=== PATIENT | male | born 1935 | race African-American/Black ===

== ENCOUNTER 2018-06-17 20:11 | Inpatient (IN) | payer MEDICAID, MEDICARE ==
--- NOTE | 2018-06-17 21:18 | ED Physician Chart ---
ED Chief Complaint/HPI - Patient Information Date Seen:: 06/17/18 Time Seen:: 21:18 Chief Complaint:: Increased agitation History of Present Illness:: 83 yo male was brought by BLS from [facility] to ER for evaluation of increased agitation and aggressive behavior. Per report, pt refused care at [facility]. On arrival at ER, pt was stable, calm and cooperative. Allergies:: Allergies Allergy/AdvReac Type Severity Reaction Status Date / Time No Known Allergies Allergy Verified 09/23/15 17:49 ED Review of Systems - Review of Systems General/Constitutional: No fever, No chills Skin: No rash Head: No headache Eyes: No pain ENT: No nasal drainage Neck: No neck pain Cardio Vascular: No chest pain Pulmonary: No SOB GI: No nausea, No vomiting Musculoskeletal: No bone or joint pain Psychiatric: Prior psych history Neurological: No focal symptoms ED Past Medical History - Past Medical History Past Medical History: HTN, Asthma/COPD, Dementia, Other (WEAKNESS, ALLERGIC RHINITIS, ANEMIA) Social History: Non Smoker, No Alcohol, No Drug Use Psychiatricy History: Bipolar, Other (Insomnia, anxiety, schizoaffective disorder) Family Medical History - Family Member Mother History Unknown: Yes Ethnicity: Non- Living Status: Hx Family Cancer: No Hx Family Coronary Artery Disease: No Hx Family Congestive Heart Failure: No Hx Family Hypertension: No Hx Family Stroke: No Hx Family Diabetes: No Hx Family Seizures: No Hx Family Dementia: No Hx Family AIDS: No Hx Family HIV: No Hx Family COPD: No Hx Family Hepatitis: No Hx Family Psychiatric Problems: No Hx Family Tuberculosis: No ED Physical Exam - Physical Examination General/Constitutional: Awake, Alert Head: Atraumatic Eyes: PERRL, EOMI Skin: No ecchymosis ENMT: Nasal exam nl Neck: No nuchal rigidity Respiratory: No Wheeze/Rhonchi/Rales Cardio Vascular: RRR, No murmur, gallop, rubs, NL S1 S2 GI: No tenderness/rebounding/guarding Extremities: normal strength in all extremities Other Neuro/Psych comments:: A&O x 1 ED Labs/Radiology/EKG Results - Lab Results Results: Laboratory Last Values WBC 7.0 Th/cmm (4.8-10.8) 06/17/18 21:35 RBC 4.28 Mil/cmm (3.80-5.80) 06/17/18 21:35 Hgb 12.6 gm/dL (12-16) 06/17/18 21:35 Hct 38.6 % (41.0-60) L 06/17/18 21:35 MCV 90.1 fl (80-99) 06/17/18 21:35 MCH 29.4 pg (27.0-31.0) 06/17/18 21:35 MCHC Differential 32.7 pg (28.0-36.0) 06/17/18 21:35 RDW 12.2 % (11.5-20.0) 06/17/18 21:35 Plt Count 183 Th/cmm (150-400) 06/17/18 21:35 MPV 7.7 fl 06/17/18 21:35 Neutrophils % 42.0 % (40.0-80.0) 06/17/18 21:35 Lymphocytes % 42.6 % (20.0-50.0) 06/17/18 21:35 Monocytes % 11.9 % (2.0-10.0) H 06/17/18 21:35 Eosinophils % 2.9 % (0.0-5.0) 06/17/18 21:35 Basophils % 0.6 % (0.0-2.0) 06/17/18 21:35 Sodium 137 mEq/L (136-145) 06/17/18 21:35 Potassium 4.2 mEq/L (3.5-5.1) 06/17/18 21:35 Chloride 101 mEq/L (98-107) 06/17/18 21:35 Carbon Dioxide 28.9 mEq/L (21.0-31.0) 06/17/18 21:35 Anion Gap 11.3 (7.0-16.0) 06/17/18 21:35 BUN 17 mg/dL (7-25) 06/17/18 21:35 Creatinine 1.0 mg/dL (0.7-1.3) 06/17/18 21:35 Est GFR ( Amer) TNP 06/17/18 21:35 Est GFR (Non-Af Amer) TNP 06/17/18 21:35 BUN/Creatinine Ratio 17.0 06/17/18 21:35 Glucose 121 mg/dL (70-105) H 06/17/18 21:35 Calcium 9.2 mg/dL (8.6-10.3) 06/17/18 21:35 Total Bilirubin 0.3 mg/dL (0.3-1.0) 06/17/18 21:35 AST 12 U/L (13-39) L 06/17/18 21:35 ALT 7 U/L (7-52) 06/17/18 21:35 Alkaline Phosphatase 51 U/L (34-104) 06/17/18 21:35 Troponin I < 0.01 ng/mL (0.01-0.05) L 06/17/18 21:35 B-Natriuretic Peptide 69.6 pg/mL (5.0-100.0) 06/17/18 21:35 Total Protein 6.5 gm/dL (6.0-8.3) 06/17/18 21:35 Albumin 3.8 gm/dL (4.2-5.5) L 06/17/18 21:35 Globulin 2.7 gm/dL 06/17/18 21:35 Albumin/Globulin Ratio 1.4 (1.0-1.8) 06/17/18 21:35 Triglycerides 98 mg/dL (<150) 06/17/18 21:35 Cholesterol 142 mg/dL (<200) 06/17/18 21:35 LDL Cholesterol Direct 96 mg/dL (75-193) 06/17/18 21:35 HDL Cholesterol 35 mg/dL (23-92) 06/17/18 21:35 TSH 3.20 uIU/ml (0.34-5.60) 06/17/18 21:35 Urine Source RANDOM 06/17/18 22:00 Urine Color YELLOW 06/17/18 22:00 Urine Clarity CLEAR (CLEAR) 06/17/18 22:00 Urine pH 7.0 (4.6 - 8.0) 06/17/18 22:00 Ur Specific [place] <= 1.005 (1.005-1.030) 06/17/18 22:00 Urine Protein NEGATIVE mg/dL (NEGATIVE) 06/17/18 22:00 Urine Glucose (UA) NEGATIVE mg/dL (NEGATIVE) 06/17/18 22:00 Urine Ketones NEGATIVE mg/dL (NEGATIVE) 06/17/18 22:00 Urine Blood NEGATIVE (NEGATIVE) 04/23/19 22:00 Urine Nitrate NEGATIVE (NEGATIVE) 06/17/18 22:00 Urine Bilirubin NEGATIVE (NEGATIVE) 06/17/18 22:00 Urine Urobilinogen 0.2 E.U./dL (0.2 - 1.0) 06/17/18 22:00 Ur Leukocyte Esterase NEGATIVE (NEGATIVE) 06/17/18 22:00 - Radiology Results Results: CXR: COPD, no focal consolidation ED Assessment - Assessment General Assessment: Hypertension COPD Anemia Weakness Schizoaffective disorder Bipolar Insomnia Anxiety Psychosis Assessment/Comments:: CBC, CMP, BNP, Trop, UA CXR, EKG Admit to geropsych unit for further evaluation and management ED Septic Shock - . Is Septic Shock (SBP<90, OR Lactate>4 mmol\L) present?: No ED Reassessment (Disposition) - Reassessment Reassessment Condition:: Unchanged - Patient Disposition Discharge/Transfer:: [facility] w/in this hosp Admitting Medical Physician:: Shi Andre Admitting Psych Physician:: Delano Suarez
[2018-06-17 21:54] LABS: % BASOPHILS 0.6 % (0.0-2.0); % EOSINOPHILS 2.9 % (0.0-5.0); % LYMPHOCYTES 42.6 % (20.0-50.0); % MONOCYTES 11.9 % (2.0-10.0); EOSINOPHILE ABSOLUTE 0.2 Th/cmm (0.1-0.4); HEMATOCRIT 38.6 % (41.0-60); HEMOGLOBIN 12.6 gm/dL (12-16); LYMPHOCYTE ABSOLUTE 3.1 Th/cmm (1.5-3.0); MEAN CELL VOLUME 90.1 fl (80-99); MEAN CORPUSCULAR HEMOGLOBIN 29.4 pg (27.0-31.0); MEAN CORPUSCULAR HGB CONC 32.7 pg (28.0-36.0); MEAN PLATELET VOLUME 7.7 fl; MONOCYTE ABSOLUTE 0.8 Th/cmm (0.3-1.0); NEUTROPHILE ABSOLUTE 2.9 Th/cmm (1.8-8.0); PLATELET COUNT 183 Th/cmm (150-400); RED BLOOD COUNT 4.28 Mil/cmm (3.80-5.80); RED CELL DISTRIBUTION WIDTH 12.2 % (11.5-20.0)
[2018-06-17 22:09] LABS: ALB/GLOB RATIO 1.4 (1.0-1.8); ALBUMIN 3.8 gm/dL (4.2-5.5); ALKALINE PHOSPHATASE 51 U/L (34-104); ANION GAP 11.3 (7.0-16.0); BILIRUBIN,TOTAL 0.3 mg/dL (0.3-1.0); BUN - UREA NITROGEN 17 mg/dL (7-25); CALCIUM SERUM 9.2 mg/dL (8.6-10.3); CARBON DIOXIDE 28.9 mEq/L (21.0-31.0); CHLORIDE 101 mEq/L (98-107); GLUCOSE 121 mg/dL (70-105); POTASSIUM SERUM 4.2 mEq/L (3.5-5.1); SGOT 12 U/L (13-39); SGPT/ALT 7 U/L (7-52); SODIUM SERUM 137 mEq/L (136-145); TOTAL PROTEIN,SERUM 6.5 gm/dL (6.0-8.3)
[2018-06-17 22:16] LABS: URINE SOURCE RANDOM
[2018-06-17 22:23] LABS: URINE BILIRUBIN NEGATIVE (NEGATIVE); URINE BLOOD NEGATIVE (NEGATIVE); URINE GLUCOSE (UA) NEGATIVE (NEGATIVE); URINE KETONE NEGATIVE (NEGATIVE); URINE LEUKOCYTE ESTERASE NEGATIVE (NEGATIVE); URINE NITRATE NEGATIVE (NEGATIVE); URINE PROTEIN NEGATIVE (NEGATIVE); URINE UROBILINOGEN 0.2 E.U./dL (0.2 - 1.0)
[2018-06-17 22:28] LABS: URINE CLARITY CLEAR (CLEAR); URINE COLOR YELLOW; URINE MICROSCOPIC INDICATED? NO
[2018-06-18 02:13] LABS: CHOLESTEROL 142 mg/dL (<200); HDL -HIGH DENSITY LIPOPROTEIN 35 mg/dL (23-92); TRIGLYCERIDES 98 mg/dL (<150)
[2018-06-18] MEDS: Ferrous Sulfate 325 MG TAB PO SCH ×3 (08:48→16:30)
--- NOTE | 2018-06-18 09:14 | Diagnostic Imaging Report ---
CHEST X-RAY: AP view INDICATION: Shortness of breath COMPARISON: None FINDINGS: COPD lung changes are seen with chronic changes and biapical pleural thickening. No focal consolidation or effusions. Heart size normal. Osseous structures are intact. IMPRESSION COPD lung changes with chronic changes greatest along the upper lung zones and biapical pleural thickening. No focal consolidation identified.
--- NOTE | 2018-06-18 17:29 | History & Physical ---
ADMIT DATE: 06/18/2018 HISTORY OF PRESENT ILLNESS: The patient was admitted because of increasing agitation, came to the Emergency Room at [facility] from [place], and was admitted. PAST MEDICAL HISTORY: Includes hypertension, asthma, dementia, allergic rhinitis, and anemia. REVIEW OF SYSTEMS: Negative. FAMILY HISTORY: Unremarkable. PHYSICAL EXAMINATION: GENERAL: Alert, oriented, elderly, not in acute distress. VITAL SIGNS: Noted. HEAD: Normal. ENT: Normal. NECK: Supple, nontender. LUNGS: Clear. CARDIOVASCULAR SYSTEM: S1, S2 heard. LABORATORY DATA: Noted within normal limits. EKG showed COPD, no consolidation. DIAGNOSES: Severe agitation, history of hypertension, chronic obstructive pulmonary disease, anemia, weakness, schizoaffective disorder, bipolar disorder, anxiety, psychosis was made. PLAN: The patient will be admitted and I will follow medically and Dr. Suarez is going to follow. [facility]# [id number]
--- NOTE | 2018-06-18 23:29 | Psychiatric Evaluation ---
DATE OF SERVICE: 06/18/2018 HISTORY OF PRESENT ILLNESS: An 83-year-old male brought in from [place] because of increased agitation, aggressive behaviors, refusal of care. The patient is AO to name, place, city, not situation. He knows the year, the month. He really has no idea why he is here, at times staring blankly, thought blocking, not answering some questions. Denying depression "everything is fine" appearing history of dementia. PAST PSYCHIATRIC HISTORY: Dementia, likely schizophrenia versus schizoaffective. FAMILY HISTORY: Noncontributory. SOCIAL HISTORY: Born in [place]. He states that he is , but does not know where his kids are or his is. He stares blankly, not answering any further questions, unclear SI or HI. He seems to be psychotic. Poor insight, poor judgment. MENTAL STATUS EXAMINATION: Stated age, disheveled, unkempt, fair eye contact, awake, alert, disorganized. No overt SI or HI as noted. PROVISIONAL DIAGNOSES: Schizophrenia, concerns for dementia. Under medical please see full H and P. ESTIMATED LENGTH OF STAY: 5 to 6 days. ASSESSMENT: The patient is unruly, agitated, worsening symptoms, psychotic symptoms, not showering, refusing care, hoarding, male, verbally aggressive, poor orientation and thought blocking. PLAN: We will adjust medications. The patient is not safe for a lower level of care. We will continue to monitor on an inpatient basis. TREATMENT PLAN: Includes group as well as milieu therapy. CONDITIONS FOR DISCHARGE: Improved mood, improved affect, better control of any psychotic symptoms. [facility]# [id number]
[2018-06-19] MEDS: Ferrous Sulfate 325 MG TAB PO SCH ×3 (09:00→17:23)
--- NOTE | 2018-06-19 12:07 | Internal Medicine Prog Note ---
Internal Medicine Subjective - Subjective Service Date: 06/19/18 Patient seen and examined:: with staff Patient is:: awake Per staff patient has:: tolerating meds Internal Medicine Objective - Results Result Diagrams: 06/17/18 21:35 06/17/18 21:35 Recent Labs: Laboratory Last Values WBC 7.0 Th/cmm (4.8-10.8) 06/17/18 21:35 RBC 4.28 Mil/cmm (3.80-5.80) 06/17/18 21:35 Hgb 12.6 gm/dL (12-16) 06/17/18 21:35 Hct 38.6 % (41.0-60) L 06/17/18 21:35 MCV 90.1 fl (80-99) 06/17/18 21:35 MCH 29.4 pg (27.0-31.0) 06/17/18 21:35 MCHC Differential 32.7 pg (28.0-36.0) 06/17/18 21:35 RDW 12.2 % (11.5-20.0) 06/17/18 21:35 Plt Count 183 Th/cmm (150-400) 06/17/18 21:35 MPV 7.7 fl 06/17/18 21:35 Neutrophils % 42.0 % (40.0-80.0) 06/17/18 21:35 Lymphocytes % 42.6 % (20.0-50.0) 06/17/18 21:35 Monocytes % 11.9 % (2.0-10.0) H 06/17/18 21:35 Eosinophils % 2.9 % (0.0-5.0) 06/17/18 21:35 Basophils % 0.6 % (0.0-2.0) 06/17/18 21:35 Sodium 137 mEq/L (136-145) 06/17/18 21:35 Potassium 4.2 mEq/L (3.5-5.1) 06/17/18 21:35 Chloride 101 mEq/L (98-107) 06/17/18 21:35 Carbon Dioxide 28.9 mEq/L (21.0-31.0) 06/17/18 21:35 Anion Gap 11.3 (7.0-16.0) 06/17/18 21:35 BUN 17 mg/dL (7-25) 06/17/18 21:35 Creatinine 1.0 mg/dL (0.7-1.3) 06/17/18 21:35 Est GFR ( Amer) TNP 06/17/18 21:35 Est GFR (Non-Af Amer) TNP 06/17/18 21:35 BUN/Creatinine Ratio 17.0 06/17/18 21:35 Glucose 121 mg/dL (70-105) H 06/17/18 21:35 Calcium 9.2 mg/dL (8.6-10.3) 06/17/18 21:35 Total Bilirubin 0.3 mg/dL (0.3-1.0) 06/17/18 21:35 AST 12 U/L (13-39) L 06/17/18 21:35 ALT 7 U/L (7-52) 06/17/18 21:35 Alkaline Phosphatase 51 U/L (34-104) 06/17/18 21:35 Troponin I < 0.01 ng/mL (0.01-0.05) L 06/17/18 21:35 B-Natriuretic Peptide 69.6 pg/mL (5.0-100.0) 06/17/18 21:35 Total Protein 6.5 gm/dL (6.0-8.3) 06/17/18 21:35 Albumin 3.8 gm/dL (4.2-5.5) L 06/17/18 21:35 Globulin 2.7 gm/dL 06/17/18 21:35 Albumin/Globulin Ratio 1.4 (1.0-1.8) 06/17/18 21:35 Triglycerides 98 mg/dL (<150) 06/17/18 21:35 Cholesterol 142 mg/dL (<200) 06/17/18 21:35 LDL Cholesterol Direct 96 mg/dL (75-193) 06/17/18 21:35 HDL Cholesterol 35 mg/dL (23-92) 06/17/18 21:35 TSH 3.20 uIU/ml (0.34-5.60) 06/17/18 21:35 Urine Source RANDOM 06/17/18 22:00 Urine Color YELLOW 06/17/18 22:00 Urine Clarity CLEAR (CLEAR) 06/17/18 22:00 Urine pH 7.0 (4.6 - 8.0) 06/17/18 22:00 Ur Specific [place] <= 1.005 (1.005-1.030) 06/17/18 22:00 Urine Protein NEGATIVE mg/dL (NEGATIVE) 06/17/18 22:00 Urine Glucose (UA) NEGATIVE mg/dL (NEGATIVE) 06/17/18 22:00 Urine Ketones NEGATIVE mg/dL (NEGATIVE) 06/17/18 22:00 Urine Blood NEGATIVE (NEGATIVE) 06/17/18 22:00 Urine Nitrate NEGATIVE (NEGATIVE) 06/17/18 22:00 Urine Bilirubin NEGATIVE (NEGATIVE) 06/17/18 22:00 Urine Urobilinogen 0.2 E.U./dL (0.2 - 1.0) 06/17/18 22:00 Ur Leukocyte Esterase NEGATIVE (NEGATIVE) 06/17/18 22:00 - Physical Exam Vitals and I&O: Vital Signs Temp 98.0 F 06/19/18 06:10 Pulse 63 06/19/18 09:12 Resp 20 06/19/18 06:10 BP 120/65 06/19/18 09:12 Pulse Ox 100 06/19/18 06:10 Intake & Output 06/18/18 06/19/18 06/19/18 18:59 06:59 18:59 Intake Total 1200 Balance 1200 Intake: Oral 1200 Other: # Voids 4 # Bowel Movements 1 Active Medications: Current Medications Acetaminophen (Tylenol) 650 mg PO Q4HR PRN PRN Reason: Pain or Fever >101 Stop: 08/16/18 23:55 Amlodipine Besylate (Norvasc) 5 mg PO DAILY ON LICENSE OF [facility] Stop: 08/17/18 08:59 Last Admin: 06/19/18 09:12 Dose: 5 mg Divalproex Sodium (Depakote Dr) 250 mg PO BID ON LICENSE OF [facility]; Protocol Stop: 08/17/18 08:59 Last Admin: 06/19/18 09:12 Dose: 250 mg Docusate Sodium (Colace) 100 mg PO DAILY ON LICENSE OF [facility] Stop: 08/17/18 08:59 Last Admin: 06/19/18 09:13 Dose: 100 mg Ferrous Sulfate (Iron) 325 mg PO TIDWM ON LICENSE OF [facility] Stop: 08/17/18 07:59 Last Admin: 06/19/18 09:00 Dose: 325 mg Lorazepam (Ativan) 0.5 mg PO Q4HR PRN; Protocol PRN Reason: Anxiety Stop: 07/17/18 23:56 Miscellaneous (Paliperidone Palmitate [Invega Sustenna]) 156 mg IM DAILY [facility] Stop: 08/17/18 08:59 Zolpidem Tartrate (Ambien) 5 mg PO HS PRN PRN Reason: Insomnia Stop: 08/16/18 23:56 General: congested HEENT: NC/AT, PERRLA Neck: Supple Lungs: CTAB Cardiovascular: RRR, Normal S1, Normal S2, without murmur Extremities: excoriation - Procedures Procedures: Procedures Procedure Code Date INDIVID PSYCHOTHERAP NEC 94.39 09/04/04 OTHER GROUP THERAPY 94.44 07/24/12 RECREATIONAL THERAPY 93.81 07/25/10 Internal Medicine Assmt/Plan - Assessment Assessment: HTN Asthma , Dementia ANEMIA - Plan Plan: fall precautions cpm
--- NOTE | 2018-06-20 03:05 | Progress Notes ---
DATE: 06/19/2018 SUBJECTIVE: The patient is currently in the hospital. History of schizophrenia, aggressive behaviors. The patient remains unruly, requiring a lot of redirection, prompting, seems to be mumbling to self, psychotic, not amenable to interview today. Staff noting he is generally redirectable, sometimes responding to internal stimuli, mumbling to self, easily agitated, disheveled, unkempt. ASSESSMENT: The patient remains disorganized, ongoing psychotic symptoms. PLAN: Currently on Invega. We will continue to monitor. JOB# [id number]
[2018-06-20] MEDS: Ferrous Sulfate 325 MG TAB PO SCH ×3 (08:26→16:21)
[2018-06-20] MEDS: Non-Formulary Item 1 EA (Paliperidone Palmitate [Invega Sustenna] 156 MG) IM SCH ×2 (11:50→11:51)
--- NOTE | 2018-06-20 12:35 | Internal Medicine Prog Note ---
Internal Medicine Subjective - Subjective Patient seen and examined:: chart reviewed (pt. psychotic ) Patient is:: awake, agitated Per staff patient has:: agitated, tolerating meds Internal Medicine Objective - Results Result Diagrams: 06/17/18 21:35 06/17/18 21:35 Recent Labs: Laboratory Last Values WBC 7.0 Th/cmm (4.8-10.8) 06/17/18 21:35 RBC 4.28 Mil/cmm (3.80-5.80) 06/17/18 21:35 Hgb 12.6 gm/dL (12-16) 06/17/18 21:35 Hct 38.6 % (41.0-60) L 06/17/18 21:35 MCV 90.1 fl (80-99) 06/17/18 21:35 MCH 29.4 pg (27.0-31.0) 06/17/18 21:35 MCHC Differential 32.7 pg (28.0-36.0) 06/17/18 21:35 RDW 12.2 % (11.5-20.0) 06/17/18 21:35 Plt Count 183 Th/cmm (150-400) 06/17/18 21:35 MPV 7.7 fl 06/17/18 21:35 Neutrophils % 42.0 % (40.0-80.0) 06/17/18 21:35 Lymphocytes % 42.6 % (20.0-50.0) 06/17/18 21:35 Monocytes % 11.9 % (2.0-10.0) H 06/17/18 21:35 Eosinophils % 2.9 % (0.0-5.0) 06/17/18 21:35 Basophils % 0.6 % (0.0-2.0) 06/17/18 21:35 Sodium 137 mEq/L (136-145) 06/17/18 21:35 Potassium 4.2 mEq/L (3.5-5.1) 06/17/18 21:35 Chloride 101 mEq/L (98-107) 06/17/18 21:35 Carbon Dioxide 28.9 mEq/L (21.0-31.0) 06/17/18 21:35 Anion Gap 11.3 (7.0-16.0) 06/17/18 21:35 BUN 17 mg/dL (7-25) 06/17/18 21:35 Creatinine 1.0 mg/dL (0.7-1.3) 06/17/18 21:35 Est GFR ( Amer) TNP 06/17/18 21:35 Est GFR (Non-Af Amer) TNP 06/17/18 21:35 BUN/Creatinine Ratio 17.0 06/17/18 21:35 Glucose 121 mg/dL (70-105) H 06/17/18 21:35 Calcium 9.2 mg/dL (8.6-10.3) 06/17/18 21:35 Total Bilirubin 0.3 mg/dL (0.3-1.0) 06/17/18 21:35 AST 12 U/L (13-39) L 06/17/18 21:35 ALT 7 U/L (7-52) 06/17/18 21:35 Alkaline Phosphatase 51 U/L (34-104) 06/17/18 21:35 Troponin I < 0.01 ng/mL (0.01-0.05) L 06/17/18 21:35 B-Natriuretic Peptide 69.6 pg/mL (5.0-100.0) 06/17/18 21:35 Total Protein 6.5 gm/dL (6.0-8.3) 06/17/18 21:35 Albumin 3.8 gm/dL (4.2-5.5) L 06/17/18 21:35 Globulin 2.7 gm/dL 06/17/18 21:35 Albumin/Globulin Ratio 1.4 (1.0-1.8) 06/17/18 21:35 Triglycerides 98 mg/dL (<150) 06/17/18 21:35 Cholesterol 142 mg/dL (<200) 06/17/18 21:35 LDL Cholesterol Direct 96 mg/dL (75-193) 06/17/18 21:35 HDL Cholesterol 35 mg/dL (23-92) 06/17/18 21:35 TSH 3.20 uIU/ml (0.34-5.60) 06/17/18 21:35 Urine Source RANDOM 06/17/18 22:00 Urine Color YELLOW 06/17/18 22:00 Urine Clarity CLEAR (CLEAR) 06/17/18 22:00 Urine pH 7.0 (4.6 - 8.0) 06/17/18 22:00 Ur Specific [place] <= 1.005 (1.005-1.030) 06/17/18 22:00 Urine Protein NEGATIVE mg/dL (NEGATIVE) 06/17/18 22:00 Urine Glucose (UA) NEGATIVE mg/dL (NEGATIVE) 06/17/18 22:00 Urine Ketones NEGATIVE mg/dL (NEGATIVE) 06/17/18 22:00 Urine Blood NEGATIVE (NEGATIVE) 06/17/18 22:00 Urine Nitrate NEGATIVE (NEGATIVE) 06/17/18 22:00 Urine Bilirubin NEGATIVE (NEGATIVE) 06/17/18 22:00 Urine Urobilinogen 0.2 E.U./dL (0.2 - 1.0) 06/17/18 22:00 Ur Leukocyte Esterase NEGATIVE (NEGATIVE) 06/17/18 22:00 RPR NONREACTIVE (NONREACTIVE) 06/17/18 21:35 - Physical Exam Vitals and I&O: Vital Signs Temp 98.2 F 06/20/18 05:05 Pulse 73 06/20/18 08:24 Resp 19 06/20/18 05:05 BP 127/66 06/20/18 08:24 Pulse Ox 99 06/20/18 05:05 Intake & Output 06/19/18 06/20/18 06/20/18 18:59 06:59 18:59 Intake Total 480 Balance 480 Intake: Oral 480 Other: # Voids 2 2 # Bowel Movements 0 Active Medications: Current Medications Acetaminophen (Tylenol) 650 mg PO Q4HR PRN PRN Reason: Pain or Fever >101 Stop: 08/16/18 23:55 Amlodipine Besylate (Norvasc) 5 mg PO DAILY [facility] Stop: 08/17/18 08:59 Last Admin: 06/20/18 08:24 Dose: 5 mg Divalproex Sodium (Depakote Dr) 250 mg PO BID [facility]; Protocol Stop: 08/17/18 08:59 Last Admin: 06/20/18 08:24 Dose: 250 mg Docusate Sodium (Colace) 100 mg PO DAILY [facility] Stop: 08/17/18 08:59 Last Admin: 06/20/18 08:24 Dose: 100 mg Ferrous Sulfate (Iron) 325 mg PO TIDWM [facility] Stop: 08/17/18 07:59 Last Admin: 06/20/18 11:45 Dose: 325 mg Lorazepam (Ativan) 0.5 mg PO Q4HR PRN; Protocol PRN Reason: Anxiety Stop: 07/17/18 23:56 Zolpidem Tartrate (Ambien) 5 mg PO HS PRN PRN Reason: Insomnia Stop: 08/16/18 23:56 General: congested HEENT: NC/AT, PERRLA Neck: Supple Lungs: CTAB Cardiovascular: RRR, Normal S1, Normal S2, without murmur Extremities: excoriation - Procedures Procedures: Procedures Procedure Code Date INDIVID PSYCHOTHERAP NEC 94.39 09/04/04 OTHER GROUP THERAPY 94.44 07/24/12 RECREATIONAL THERAPY 93.81 07/25/10 Internal Medicine Assmt/Plan - Assessment Assessment: htn asthma dementia anemia - Plan Plan: fall precautions as per psych will monitor pt. cpm Nutritional Asmnt/Malnutr-PDOC - Dietary Evaluation Malnutrition Findings (Please click <Entered> for more info): Nutritional Asmnt/Malnutrition Start: 06/20/18 11: 22 Text: Status: Active Freq: Protocol: Document 06/20/18 11:22 LCHENG (Rec: 06/20/18 11:34 [email or web address] [email or web address]) Nutritional Asmnt/Malnutrition Patient General Information Nutritional Screening Moderate Risk Diagnosis psychosis Pertinent Medical Hx/Surgical Hx HTN, asthma/COPD, dementia, weakness, allergic rhinitis, anemia, bipolar, insomnia, anxiety, schizoaffective disorder Subjective Information Per EMR, PO intake 25-100%. Current Diet Order/ Nutrition Support regular Pertinent Medications colace, iron Pertinent Labs 06/17 glucose 121, Alb 3.8 Nutritional Hx/Data Height 1.78 m Height (Calculated Centimeters) 177.8 Current Weight (lbs) 68.039 kg Weight (Calculated Kilograms) 68.0 Weight (Calculated Grams) 77021.9 Usual body Weight (lbs) 166 Body Mass Index (BMI) 21.5 Weight Status Approriate GI Symptoms GI Symptoms None Last BM 06/18 Difficult in: None Skin Integrity/Comment: intact Current %PO Good (75-100%) Estimated Nutritional Goals BEE in Kcals: Using Current wt Calories/Kcals/Kg 25-30 Kcals Calculated 9404-9032 Protein: Using Current wt Protein g/k Protein Calculated 68 Fluid: ml 1700-2040ml (1m/kcal) Nutritional Problem No current Nutrition Prob Problem N/A Intervention/Recommendation Comments 1. Continue with current diet as ordered. 2. Monitor PO intake, wt, labs and skin integrity 3. F/U as Expected Outcomes/Goals Expected Outcomes/Goals 1. PO intake to meet at least 75% of nutritional needs. 2. Wt stability, skin to remain intact, labs to approach WNL.
--- NOTE | 2018-06-21 03:33 | Progress Notes ---
DATE: 06/20/2018 SUBJECTIVE: The patient is currently in the hospital, history of schizophrenia, sometimes unruly. Last dose of Invega Sustenna on 06/03/2018. We will discontinue Invega Sustenna while in the hospital. The patient is confused, mumbling to self, responding to internal stimuli, ongoing psychotic symptoms. Currently on Depakote, Invega Sustenna. Fair sleep, fair appetite, mostly keeping to himself, withdrawn. PLAN: We will continue to monitor ongoing concerns about psychosis. We will monitor closely for any behavioral disturbances. JOB# [id number]
[2018-06-21] MEDS: Ferrous Sulfate 325 MG TAB PO SCH ×2 (09:01→16:26)
--- NOTE | 2018-06-21 18:44 | Progress Notes ---
DATE: 06/21/2018 SUBJECTIVE: The patient in the hospital. Has history of schizophrenia, sometimes unruly, mumbling to self, responding to internal stimuli, seems to still be with underlying and ongoing psychotic symptoms, mostly keeps him so forgetful, does not really know why he is here. Very poor dentition. Pacing back and forth, can be upset, aggressive, concerns about psychotically driven agitation. Otherwise, no behavioral disturbances over the past 24 hours. The patient knows that he is coming from [place]. Generally takes Invega Sustenna and Depakote. PLAN: We will continue to monitor. The patient may be approaching his baseline, generally calmer. We will continue to monitor. We will add a dose of Namenda to his regimen. JOB# [id number]
[2018-06-22] MEDS: Ferrous Sulfate 325 MG TAB PO SCH ×3 (08:11→16:48)
--- NOTE | 2018-06-22 10:34 | Internal Medicine Prog Note ---
Internal Medicine Subjective - Subjective Patient seen and examined:: chart reviewed Patient is:: awake, agitated, other (still psychotic ) Per staff patient has:: agitated, tolerating meds Internal Medicine Objective - Results Result Diagrams: 06/17/18 21:35 06/17/18 21:35 Recent Labs: Laboratory Last Values WBC 7.0 Th/cmm (4.8-10.8) 06/17/18 21:35 RBC 4.28 Mil/cmm (3.80-5.80) 06/17/18 21:35 Hgb 12.6 gm/dL (12-16) 06/17/18 21:35 Hct 38.6 % (41.0-60) L 06/17/18 21:35 MCV 90.1 fl (80-99) 06/17/18 21:35 MCH 29.4 pg (27.0-31.0) 06/17/18 21:35 MCHC Differential 32.7 pg (28.0-36.0) 06/17/18 21:35 RDW 12.2 % (11.5-20.0) 06/17/18 21:35 Plt Count 183 Th/cmm (150-400) 06/17/18 21:35 MPV 7.7 fl 06/17/18 21:35 Neutrophils % 42.0 % (40.0-80.0) 06/17/18 21:35 Lymphocytes % 42.6 % (20.0-50.0) 06/17/18 21:35 Monocytes % 11.9 % (2.0-10.0) H 06/17/18 21:35 Eosinophils % 2.9 % (0.0-5.0) 06/17/18 21:35 Basophils % 0.6 % (0.0-2.0) 06/17/18 21:35 Sodium 137 mEq/L (136-145) 06/17/18 21:35 Potassium 4.2 mEq/L (3.5-5.1) 06/17/18 21:35 Chloride 101 mEq/L (98-107) 06/17/18 21:35 Carbon Dioxide 28.9 mEq/L (21.0-31.0) 06/17/18 21:35 Anion Gap 11.3 (7.0-16.0) 06/17/18 21:35 BUN 17 mg/dL (7-25) 06/17/18 21:35 Creatinine 1.0 mg/dL (0.7-1.3) 06/17/18 21:35 Est GFR ( Amer) TNP 06/17/18 21:35 Est GFR (Non-Af Amer) TNP 06/17/18 21:35 BUN/Creatinine Ratio 17.0 06/17/18 21:35 Glucose 121 mg/dL (70-105) H 06/17/18 21:35 Calcium 9.2 mg/dL (8.6-10.3) 06/17/18 21:35 Total Bilirubin 0.3 mg/dL (0.3-1.0) 06/17/18 21:35 AST 12 U/L (13-39) L 06/17/18 21:35 ALT 7 U/L (7-52) 06/17/18 21:35 Alkaline Phosphatase 51 U/L (34-104) 06/17/18 21:35 Troponin I < 0.01 ng/mL (0.01-0.05) L 06/17/18 21:35 B-Natriuretic Peptide 69.6 pg/mL (5.0-100.0) 06/17/18 21:35 Total Protein 6.5 gm/dL (6.0-8.3) 06/17/18 21:35 Albumin 3.8 gm/dL (4.2-5.5) L 06/17/18 21:35 Globulin 2.7 gm/dL 06/17/18 21:35 Albumin/Globulin Ratio 1.4 (1.0-1.8) 06/17/18 21:35 Triglycerides 98 mg/dL (<150) 06/17/18 21:35 Cholesterol 142 mg/dL (<200) 06/17/18 21:35 LDL Cholesterol Direct 96 mg/dL (75-193) 06/17/18 21:35 HDL Cholesterol 35 mg/dL (23-92) 06/17/18 21:35 TSH 3.20 uIU/ml (0.34-5.60) 06/17/18 21:35 Urine Source RANDOM 06/17/18 22:00 Urine Color YELLOW 06/17/18 22:00 Urine Clarity CLEAR (CLEAR) 06/17/18 22:00 Urine pH 7.0 (4.6 - 8.0) 06/17/18 22:00 Ur Specific [place] <= 1.005 (1.005-1.030) 06/17/18 22:00 Urine Protein NEGATIVE mg/dL (NEGATIVE) 06/17/18 22:00 Urine Glucose (UA) NEGATIVE mg/dL (NEGATIVE) 06/17/18 22:00 Urine Ketones NEGATIVE mg/dL (NEGATIVE) 06/17/18 22:00 Urine Blood NEGATIVE (NEGATIVE) 06/17/18 22:00 Urine Nitrate NEGATIVE (NEGATIVE) 06/17/18 22:00 Urine Bilirubin NEGATIVE (NEGATIVE) 06/17/18 22:00 Urine Urobilinogen 0.2 E.U./dL (0.2 - 1.0) 06/17/18 22:00 Ur Leukocyte Esterase NEGATIVE (NEGATIVE) 06/17/18 22:00 RPR NONREACTIVE (NONREACTIVE) 06/17/18 21:35 - Physical Exam Vitals and I&O: Vital Signs Temp 97.8 F 06/22/18 05:56 Pulse 105 06/22/18 08:30 Resp 19 06/22/18 05:56 BP 99/51 06/22/18 08:30 Pulse Ox 98 06/22/18 05:56 Intake & Output 06/21/18 06/22/18 06/22/18 18:59 06:59 18:59 Intake Total 1000 240 Balance 1000 240 Weight (lbs) 68.039 kg Intake: Oral 1000 240 Other: # Voids 3 3 # Bowel Movements 1 0 Weight Source Bedscale Active Medications: Current Medications Acetaminophen (Tylenol) 650 mg PO Q4HR PRN PRN Reason: Pain or Fever >101 Stop: 08/16/18 23:55 Amlodipine Besylate (Norvasc) 5 mg PO DAILY [facility] Stop: 08/17/18 08:59 Last Admin: 06/22/18 08:30 Dose: Not Given Divalproex Sodium (Depakote Dr) 250 mg PO BID [facility]; Protocol Stop: 08/17/18 08:59 Last Admin: 06/22/18 08:11 Dose: 250 mg Docusate Sodium (Colace) 100 mg PO DAILY [facility] Stop: 08/17/18 08:59 Last Admin: 06/22/18 08:11 Dose: 100 mg Ferrous Sulfate (Iron) 325 mg PO TIDWM [facility] Stop: 08/17/18 07:59 Last Admin: 06/22/18 08:11 Dose: 325 mg Lorazepam (Ativan) 0.5 mg PO Q4HR PRN; Protocol PRN Reason: Anxiety Stop: 07/17/18 23:56 Last Admin: 06/22/18 03:03 Dose: 0.5 mg Memantine (Namenda) 5 mg PO DAILY [facility] Stop: 08/20/18 08:59 Last Admin: 06/22/18 08:12 Dose: 5 mg Risperidone (Risperdal) 0.25 mg PO BID [facility]; Protocol Stop: 08/21/18 08:59 Last Admin: 06/22/18 08:12 Dose: 0.25 mg Zolpidem Tartrate (Ambien) 5 mg PO HS PRN PRN Reason: Insomnia Stop: 08/16/18 23:56 Last Admin: 06/21/18 21:07 Dose: 5 mg General: congested HEENT: NC/AT, PERRLA Neck: Supple Lungs: CTAB Cardiovascular: RRR, Normal S1, Normal S2, without murmur Extremities: excoriation - Procedures Procedures: Procedures Procedure Code Date INDIVID PSYCHOTHERAP NEC 94.39 09/04/04 OTHER GROUP THERAPY 94.44 07/24/12 RECREATIONAL THERAPY 93.81 07/25/10 Internal Medicine Assmt/Plan - Assessment Assessment: htn asthma dementia anemia - Plan Plan: fall precautions as per psych will monitor pt. cpm Nutritional Asmnt/Malnutr-PDOC - Dietary Evaluation Malnutrition Findings (Please click <Entered> for more info): Nutritional Asmnt/Malnutrition Start: 06/20/18 11: 22 Text: Status: Complete Freq: Protocol: Document 06/20/18 11:22 LCHENG (Rec: 06/20/18 11:34 LCHENG [email or web address]) Nutritional Asmnt/Malnutrition Patient General Information Nutritional Screening Moderate Risk Diagnosis psychosis Pertinent Medical Hx/Surgical Hx HTN, asthma/COPD, dementia, weakness, allergic rhinitis, anemia, bipolar, insomnia, anxiety, schizoaffective disorder Subjective Information Pt seen walking in hallway, confsued. Per EMR, PO intake 25-100%. Current Diet Order/ Nutrition Support regular Pertinent Medications colace, iron Pertinent Labs 06/17 glucose 121, Alb 3.8 Nutritional Hx/Data Height 1.78 m Height (Calculated Centimeters) 177.8 Current Weight (lbs) 68.039 kg Weight (Calculated Kilograms) 68.0 Weight (Calculated Grams) 72550.9 Usual body Weight (lbs) 166 Body Mass Index (BMI) 21.5 Weight Status Approriate GI Symptoms GI Symptoms None Last BM / Difficult in: None Skin Integrity/Comment: intact Current %PO Good (75-100%) Estimated Nutritional Goals BEE in Kcals: Using Current wt Calories/Kcals/Kg 25-30 Kcals Calculated 5821-7425 Protein: Using Current wt Protein g/k Protein Calculated 68 Fluid: ml 1700-2040ml (1m/kcal) Nutritional Problem No current Nutrition Prob Problem N/A Intervention/Recommendation Comments 1. Continue with regular diet as ordered. 2. Monitor PO intake, wt, labs and skin integrity 3. F/U as low risk in 7 days Expected Outcomes/Goals Expected Outcomes/Goals 1. PO intake to meet at least 75% of nutritional needs. 2. Wt stability, skin to remain intact, labs to approach WNL.
--- NOTE | 2018-06-22 20:01 | Progress Notes ---
DATE: 06/22/2018 SUBJECTIVE: The patient remains somewhat forgetful and disoriented, easily agitated, unpredictable at times, focused on smoking. The patient requires ongoing prompting and redirection, calm on exam, talking to himself at times, rambling. ASSESSMENT: The patient with ongoing psychotic symptoms, rambling to self, likely sequelae of advanced dementia. PLAN: We will continue to monitor. We will also consider low dose antipsychotic medications. Given ongoing elements of psychosis, we will continue to monitor and follow up. [facility]# [id number]
[2018-06-23] MEDS: Ferrous Sulfate 325 MG TAB PO SCH ×3 (08:11→16:52)
--- NOTE | 2018-06-23 10:45 | Internal Medicine Prog Note ---
Internal Medicine Subjective - Subjective Service Date: 06/23/18 Patient seen and examined:: with staff, chart reviewed Patient is:: awake, verbal, agitated, confused, other (still psychotic ) Patient Complaints of:: other (forgetful and rambling, talking to himself.) Per staff patient has:: no adverse event, no episodes of fall, agitated, tolerating meds Internal Medicine Objective - Results Result Diagrams: 06/17/18 21:35 06/17/18 21:35 Recent Labs: Laboratory Last Values WBC 7.0 Th/cmm (4.8-10.8) 06/17/18 21:35 RBC 4.28 Mil/cmm (3.80-5.80) 06/17/18 21:35 Hgb 12.6 gm/dL (12-16) 06/17/18 21:35 Hct 38.6 % (41.0-60) L 06/17/18 21:35 MCV 90.1 fl (80-99) 06/17/18 21:35 MCH 29.4 pg (27.0-31.0) 06/17/18 21:35 MCHC Differential 32.7 pg (28.0-36.0) 06/17/18 21:35 RDW 12.2 % (11.5-20.0) 06/17/18 21:35 Plt Count 183 Th/cmm (150-400) 06/17/18 21:35 MPV 7.7 fl 06/17/18 21:35 Neutrophils % 42.0 % (40.0-80.0) 06/17/18 21:35 Lymphocytes % 42.6 % (20.0-50.0) 06/17/18 21:35 Monocytes % 11.9 % (2.0-10.0) H 06/17/18 21:35 Eosinophils % 2.9 % (0.0-5.0) 06/17/18 21:35 Basophils % 0.6 % (0.0-2.0) 06/17/18 21:35 Sodium 137 mEq/L (136-145) 06/17/18 21:35 Potassium 4.2 mEq/L (3.5-5.1) 06/17/18 21:35 Chloride 101 mEq/L (98-107) 06/17/18 21:35 Carbon Dioxide 28.9 mEq/L (21.0-31.0) 06/17/18 21:35 Anion Gap 11.3 (7.0-16.0) 06/17/18 21:35 BUN 17 mg/dL (7-25) 06/17/18 21:35 Creatinine 1.0 mg/dL (0.7-1.3) 06/17/18 21:35 Est GFR ( Amer) TNP 06/17/18 21:35 Est GFR (Non-Af Amer) TNP 06/17/18 21:35 BUN/Creatinine Ratio 17.0 06/17/18 21:35 Glucose 121 mg/dL (70-105) H 06/17/18 21:35 Calcium 9.2 mg/dL (8.6-10.3) 06/17/18 21:35 Total Bilirubin 0.3 mg/dL (0.3-1.0) 06/17/18 21:35 AST 12 U/L (13-39) L 06/17/18 21:35 ALT 7 U/L (7-52) 06/17/18 21:35 Alkaline Phosphatase 51 U/L (34-104) 06/17/18 21:35 Troponin I < 0.01 ng/mL (0.01-0.05) L 06/17/18 21:35 B-Natriuretic Peptide 69.6 pg/mL (5.0-100.0) 06/17/18 21:35 Total Protein 6.5 gm/dL (6.0-8.3) 06/17/18 21:35 Albumin 3.8 gm/dL (4.2-5.5) L 06/17/18 21:35 Globulin 2.7 gm/dL 06/17/18 21:35 Albumin/Globulin Ratio 1.4 (1.0-1.8) 06/17/18 21:35 Triglycerides 98 mg/dL (<150) 06/17/18 21:35 Cholesterol 142 mg/dL (<200) 06/17/18 21:35 LDL Cholesterol Direct 96 mg/dL (75-193) 06/17/18 21:35 HDL Cholesterol 35 mg/dL (23-92) 06/17/18 21:35 TSH 3.20 uIU/ml (0.34-5.60) 06/17/18 21:35 Urine Source RANDOM 06/17/18 22:00 Urine Color YELLOW 06/17/18 22:00 Urine Clarity CLEAR (CLEAR) 06/17/18 22:00 Urine pH 7.0 (4.6 - 8.0) 06/17/18 22:00 Ur Specific [place] <= 1.005 (1.005-1.030) 06/17/18 22:00 Urine Protein NEGATIVE mg/dL (NEGATIVE) 06/17/18 22:00 Urine Glucose (UA) NEGATIVE mg/dL (NEGATIVE) 06/17/18 22:00 Urine Ketones NEGATIVE mg/dL (NEGATIVE) 06/17/18 22:00 Urine Blood NEGATIVE (NEGATIVE) 06/17/18 22:00 Urine Nitrate NEGATIVE (NEGATIVE) 06/17/18 22:00 Urine Bilirubin NEGATIVE (NEGATIVE) 06/17/18 22:00 Urine Urobilinogen 0.2 E.U./dL (0.2 - 1.0) 06/17/18 22:00 Ur Leukocyte Esterase NEGATIVE (NEGATIVE) 06/17/18 22:00 RPR NONREACTIVE (NONREACTIVE) 06/17/18 21:35 - Physical Exam Vitals and I&O: Vital Signs Temp 97.9 F 06/23/18 05:50 Pulse 67 06/23/18 08:12 Resp 20 06/23/18 05:50 BP 133/70 06/23/18 08:12 Pulse Ox 100 06/23/18 05:50 Intake & Output 06/22/18 06/23/18 06/23/18 18:59 06:59 18:59 Intake Total 120 Balance 120 Intake: Oral 120 Other: # Voids 2 # Bowel Movements 0 Active Medications: Current Medications Acetaminophen (Tylenol) 650 mg PO Q4HR PRN PRN Reason: Pain or Fever >101 Stop: 08/16/18 23:55 Last Admin: 06/22/18 17:00 Dose: 650 mg Amlodipine Besylate (Norvasc) 5 mg PO DAILY [facility] Stop: 08/17/18 08:59 Last Admin: 06/23/18 08:12 Dose: 5 mg Divalproex Sodium (Depakote Dr) 250 mg PO BID [facility]; Protocol Stop: 08/17/18 08:59 Last Admin: 06/23/18 08:12 Dose: 250 mg Docusate Sodium (Colace) 100 mg PO DAILY [facility] Stop: 08/17/18 08:59 Last Admin: 06/23/18 08:12 Dose: 100 mg Ferrous Sulfate (Iron) 325 mg PO TIDWM [facility] Stop: 08/17/18 07:59 Last Admin: 06/23/18 08:11 Dose: 325 mg Lorazepam (Ativan) 0.5 mg PO Q4HR PRN; Protocol PRN Reason: Anxiety Stop: 07/17/18 23:56 Last Admin: 06/23/18 01:11 Dose: 0.5 mg Memantine (Namenda) 5 mg PO DAILY [facility] Stop: 08/20/18 08:59 Last Admin: 06/23/18 08:13 Dose: 5 mg Risperidone (Risperdal) 0.25 mg PO BID [facility]; Protocol Stop: 08/21/18 08:59 Last Admin: 06/23/18 08:13 Dose: 0.25 mg Zolpidem Tartrate (Ambien) 5 mg PO HS PRN PRN Reason: Insomnia Stop: 08/16/18 23:56 Last Admin: 06/22/18 21:00 Dose: 5 mg Physical Exam: 83 y/o male patient continues to ramble, talk to himself, unpredictable. General: congested, demented, other (forgetful.) HEENT: NC/AT, PERRLA Neck: Supple Lungs: CTAB Cardiovascular: RRR, Normal S1, Normal S2, without murmur Abdomen: soft, non-tender Extremities: excoriation Neurological: no change, disorganized - Procedures Procedures: Procedures Procedure Code Date INDIVID PSYCHOTHERAP NEC 94.39 09/04/04 OTHER GROUP THERAPY 94.44 07/24/12 RECREATIONAL THERAPY 93.81 07/25/10 Internal Medicine Assmt/Plan - Assessment Assessment: htn asthma dementia anemia psychosis - Plan Plan: fall precautions as per psych will monitor pt. cpm Nutritional Asmnt/Malnutr-PDOC - Dietary Evaluation Malnutrition Findings (Please click <Entered> for more info): Nutritional Asmnt/Malnutrition Start: 06/20/18 11: 22 Text: Status: Complete Freq: Protocol: Document 06/20/18 11:22 ROSANNE (Rec: 06/20/18 11:34 ROSANNE [email or web address]) Nutritional Asmnt/Malnutrition Patient General Information Nutritional Screening Moderate Risk Diagnosis psychosis Pertinent Medical Hx/Surgical Hx HTN, asthma/COPD, dementia, weakness, allergic rhinitis, anemia, bipolar, insomnia, anxiety, schizoaffective disorder Subjective Information Pt seen walking in hallway, confsued. Per EMR, PO intake 25-100%. Current Diet Order/ Nutrition Support regular Pertinent Medications colace, iron Pertinent Labs 06/17 glucose 121, Alb 3.8 Nutritional Hx/Data Height 1.78 m Height (Calculated Centimeters) 177.8 Current Weight (lbs) 68.039 kg Weight (Calculated Kilograms) 68.0 Weight (Calculated Grams) 61777.9 Usual body Weight (lbs) 166 Body Mass Index (BMI) 21.5 Weight Status Approriate GI Symptoms GI Symptoms None Last BM 06/18 Difficult in: None Skin Integrity/Comment: intact Current %PO Good (75-100%) Estimated Nutritional Goals BEE in Kcals: Using Current wt Calories/Kcals/Kg 25-30 Kcals Calculated 0859-8835 Protein: Using Current wt Protein g/k Protein Calculated 68 Fluid: ml 1700-2040ml (1m/kcal) Nutritional Problem No current Nutrition Prob Problem N/A Intervention/Recommendation Comments 1. Continue with regular diet as ordered. 2. Monitor PO intake, wt, labs and skin integrity 3. F/U as low risk in 7 days Expected Outcomes/Goals Expected Outcomes/Goals 1. PO intake to meet at least 75% of nutritional needs. 2. Wt stability, skin to remain intact, labs to approach WNL.
--- NOTE | 2018-06-24 07:02 | Progress Notes ---
DATE: 06/23/2018 The patient remains forgetful, disoriented, sometimes unpredictable. He is a generally calmer, seems to be approaching his baseline, still rambling to self, confused, demented. The patients confirmation of placement has been confirmed. He is sleeping well, eating well, seems to be well adjusted to current dosing to medications. ASSESSMENT: The patient seems to be improving, more redirectable, staff noting that he is not as aggressive over the past few days. We will monitor for further 24 hours and consider discharge tomorrow. JOB# [id number]
[2018-06-24] MEDS: Ferrous Sulfate 325 MG TAB PO SCH (09:02)
--- NOTE | 2018-06-24 13:32 | Internal Medicine Prog Note ---
Internal Medicine Subjective - Subjective Service Date: 06/24/18 Patient is:: awake, verbal, agitated, confused, other (still psychotic ) Patient Complaints of:: other (forgetful and rambling, talking to himself.) Per staff patient has:: no adverse event, no episodes of fall, agitated, tolerating meds Internal Medicine Objective - Results Result Diagrams: 06/17/18 21:35 06/17/18 21:35 Recent Labs: Laboratory Last Values WBC 7.0 Th/cmm (4.8-10.8) 06/17/18 21:35 RBC 4.28 Mil/cmm (3.80-5.80) 06/17/18 21:35 Hgb 12.6 gm/dL (12-16) 06/17/18 21:35 Hct 38.6 % (41.0-60) L 06/17/18 21:35 MCV 90.1 fl (80-99) 06/17/18 21:35 MCH 29.4 pg (27.0-31.0) 06/17/18 21:35 MCHC Differential 32.7 pg (28.0-36.0) 06/17/18 21:35 RDW 12.2 % (11.5-20.0) 06/17/18 21:35 Plt Count 183 Th/cmm (150-400) 06/17/18 21:35 MPV 7.7 fl 06/17/18 21:35 Neutrophils % 42.0 % (40.0-80.0) 06/17/18 21:35 Lymphocytes % 42.6 % (20.0-50.0) 06/17/18 21:35 Monocytes % 11.9 % (2.0-10.0) H 06/17/18 21:35 Eosinophils % 2.9 % (0.0-5.0) 06/17/18 21:35 Basophils % 0.6 % (0.0-2.0) 06/17/18 21:35 Sodium 137 mEq/L (136-145) 06/17/18 21:35 Potassium 4.2 mEq/L (3.5-5.1) 06/17/18 21:35 Chloride 101 mEq/L (98-107) 06/17/18 21:35 Carbon Dioxide 28.9 mEq/L (21.0-31.0) 06/17/18 21:35 Anion Gap 11.3 (7.0-16.0) 06/17/18 21:35 BUN 17 mg/dL (7-25) 06/17/18 21:35 Creatinine 1.0 mg/dL (0.7-1.3) 06/17/18 21:35 Est GFR ( Amer) TNP 06/17/18 21:35 Est GFR (Non-Af Amer) TNP 06/17/18 21:35 BUN/Creatinine Ratio 17.0 06/17/18 21:35 Glucose 121 mg/dL (70-105) H 06/17/18 21:35 Calcium 9.2 mg/dL (8.6-10.3) 06/17/18 21:35 Total Bilirubin 0.3 mg/dL (0.3-1.0) 06/17/18 21:35 AST 12 U/L (13-39) L 06/17/18 21:35 ALT 7 U/L (7-52) 06/17/18 21:35 Alkaline Phosphatase 51 U/L (34-104) 06/17/18 21:35 Troponin I < 0.01 ng/mL (0.01-0.05) L 06/17/18 21:35 B-Natriuretic Peptide 69.6 pg/mL (5.0-100.0) 06/17/18 21:35 Total Protein 6.5 gm/dL (6.0-8.3) 06/17/18 21:35 Albumin 3.8 gm/dL (4.2-5.5) L 06/17/18 21:35 Globulin 2.7 gm/dL 06/17/18 21:35 Albumin/Globulin Ratio 1.4 (1.0-1.8) 06/17/18 21:35 Triglycerides 98 mg/dL (<150) 06/17/18 21:35 Cholesterol 142 mg/dL (<200) 06/17/18 21:35 LDL Cholesterol Direct 96 mg/dL (75-193) 06/17/18 21:35 HDL Cholesterol 35 mg/dL (23-92) 06/17/18 21:35 TSH 3.20 uIU/ml (0.34-5.60) 06/17/18 21:35 Urine Source RANDOM 06/17/18 22:00 Urine Color YELLOW 06/17/18 22:00 Urine Clarity CLEAR (CLEAR) 06/17/18 22:00 Urine pH 7.0 (4.6 - 8.0) 06/17/18 22:00 Ur Specific [place] <= 1.005 (1.005-1.030) 06/17/18 22:00 Urine Protein NEGATIVE mg/dL (NEGATIVE) 06/17/18 22:00 Urine Glucose (UA) NEGATIVE mg/dL (NEGATIVE) 06/17/18 22:00 Urine Ketones NEGATIVE mg/dL (NEGATIVE) 06/17/18 22:00 Urine Blood NEGATIVE (NEGATIVE) 06/17/18 22:00 Urine Nitrate NEGATIVE (NEGATIVE) 06/17/18 22:00 Urine Bilirubin NEGATIVE (NEGATIVE) 06/17/18 22:00 Urine Urobilinogen 0.2 E.U./dL (0.2 - 1.0) 06/17/18 22:00 Ur Leukocyte Esterase NEGATIVE (NEGATIVE) 06/17/18 22:00 RPR NONREACTIVE (NONREACTIVE) 06/17/18 21:35 - Physical Exam Vitals and I&O: Vital Signs Temp 98.0 F 06/24/18 04:37 Pulse 70 06/24/18 04:37 Resp 19 06/24/18 04:37 BP 127/82 06/24/18 04:37 Pulse Ox 98 06/24/18 04:37 Intake & Output 06/23/18 06/24/18 06/24/18 18:59 06:59 18:59 Intake Total 1000 480 Balance 1000 480 Intake: Oral 1000 480 Other: # Voids 4 2 # Bowel Movements 1 Active Medications: Current Medications Acetaminophen (Tylenol) 650 mg PO Q4HR PRN PRN Reason: Pain or Fever >101 Stop: 08/16/18 23:55 Last Admin: 06/22/18 17:00 Dose: 650 mg Amlodipine Besylate (Norvasc) 5 mg PO DAILY [facility] Stop: 08/17/18 08:59 Last Admin: 06/24/18 09:02 Dose: Not Given Divalproex Sodium (Depakote Dr) 250 mg PO BID [facility]; Protocol Stop: 08/17/18 08:59 Last Admin: 06/24/18 09:03 Dose: 250 mg Docusate Sodium (Colace) 100 mg PO DAILY [facility] Stop: 08/17/18 08:59 Last Admin: 06/24/18 09:03 Dose: 100 mg Ferrous Sulfate (Iron) 325 mg PO TIDWM [facility] Stop: 08/17/18 07:59 Last Admin: 06/24/18 09:02 Dose: 325 mg Lorazepam (Ativan) 0.5 mg PO Q4HR PRN; Protocol PRN Reason: Anxiety Stop: 07/17/18 23:56 Last Admin: 06/23/18 01:11 Dose: 0.5 mg Memantine (Namenda) 5 mg PO DAILY [facility] Stop: 08/20/18 08:59 Last Admin: 06/24/18 09:03 Dose: 5 mg Risperidone (Risperdal) 0.25 mg PO BID [facility]; Protocol Stop: 08/21/18 08:59 Last Admin: 06/24/18 09:03 Dose: 0.25 mg Zolpidem Tartrate (Ambien) 5 mg PO HS PRN PRN Reason: Insomnia Stop: 08/16/18 23:56 Last Admin: 06/23/18 21:31 Dose: 5 mg General: congested, demented, other (forgetful.) HEENT: NC/AT, PERRLA Neck: Supple Lungs: CTAB Cardiovascular: RRR, Normal S1, Normal S2, without murmur Abdomen: soft, non-tender Extremities: excoriation Neurological: no change, disorganized - Procedures Procedures: Procedures Procedure Code Date INDIVID PSYCHOTHERAP NEC 94.39 09/04/04 OTHER GROUP THERAPY 94.44 07/24/12 RECREATIONAL THERAPY 93.81 07/25/10 Internal Medicine Assmt/Plan - Assessment Assessment: HTN Asthma , Dementia ANEMIA - Plan Plan: fall precautions cpm Nutritional Asmnt/Malnutr-PDOC - Dietary Evaluation Malnutrition Findings (Please click <Entered> for more info): Nutritional Asmnt/Malnutrition Start: 06/20/18 11: 22 Text: Status: Complete Freq: Protocol: Document 06/20/18 11:22 ROSANNE (Rec: 06/20/18 11:34 ROSANNE [email or web address]) Nutritional Asmnt/Malnutrition Patient General Information Nutritional Screening Moderate Risk Diagnosis psychosis Pertinent Medical Hx/Surgical Hx HTN, asthma/COPD, dementia, weakness, allergic rhinitis, anemia, bipolar, insomnia, anxiety, schizoaffective disorder Subjective Information Pt seen walking in hallway, confsued. Per EMR, PO intake 25-100%. Current Diet Order/ Nutrition Support regular Pertinent Medications colace, iron Pertinent Labs 06/17 glucose 121, Alb 3.8 Nutritional Hx/Data Height 5 ft 10 in Height (Calculated Centimeters) 177.8 Current Weight (lbs) 150 lb Weight (Calculated Kilograms) 68.0 Weight (Calculated Grams) 88728.9 Usual body Weight (lbs) 166 Body Mass Index (BMI) 21.5 Weight Status Approriate GI Symptoms GI Symptoms None Last BM 06/18 Difficult in: None Skin Integrity/Comment: intact Current %PO Good (75-100%) Estimated Nutritional Goals BEE in Kcals: Using Current wt Calories/Kcals/Kg 25-30 Kcals Calculated 6189-7091 Protein: Using Current wt Protein g/k Protein Calculated 68 Fluid: ml 1700-2040ml (1m/kcal) Nutritional Problem No current Nutrition Prob Problem N/A Intervention/Recommendation Comments 1. Continue with regular diet as ordered. 2. Monitor PO intake, wt, labs and skin integrity 3. F/U as low risk in 7 days Expected Outcomes/Goals Expected Outcomes/Goals 1. PO intake to meet at least 75% of nutritional needs. 2. Wt stability, skin to remain intact, labs to approach WNL.
--- NOTE | 2018-06-24 22:54 | Discharge Summary ---
DATE OF DISCHARGE: 06/24/2018 HISTORY OF PRESENT ILLNESS: This is an 83-year-old male brought in from [place] with increased agitation, aggressive behaviors, refusal of care, poor orientation and only knew the name. He knew where he was and he knew the city he was in, he knew the year and the month, but he had no idea why he was in the hospital, staring blankly at times, not answering questions appropriately. Denying any overt depression or sadness, or resistant to care, needing prompting to shower for example. PAST PSYCHIATRIC HISTORY: Dementia, schizophrenia or schizoaffective. SOCIAL HISTORY: The patient staying in a long term. PROVISIONAL DIAGNOSIS: Schizophrenia. HOSPITAL COURSE: After initial assessment, the patient was titrated on medications. Medications were increased as the hospital course progressed, mood improved, affect improved, more amenable to treatment, amenable to showering, seen mumbling to self, but no agitation, no escalation of behaviors. Fair sleep, fair appetite. By 06/24/2018, he was devoid of any psychotic or dangerous symptoms and was discharged to a lower level of care. CONDITION UPON DISCHARGE: Improved, allowing ADLs. Mood "okay." Affect flat. Thought processes were confused. No SI, no HI. No gross psychotic symptoms. Denying any delusions, denying any voices, better impulse control. PROVISIONAL DIAGNOSES: Dementia, also schizophrenia. MEDICAL: Please see full H and P. PROGNOSIS: If the patient follows up with outpatient mental health services and remains compliant with treatment, prognosis will improve, otherwise guarded. [facility]# [id number]
== END 2018-06-24 13:45 | DRG 885 ==
LOC: ER 20:11 → GERO2 22:46
PROVIDERS: ADMIT Psychiatry & Neurology Psychiatry; ATTEND Psychiatry & Neurology Psychiatry
DX: F25.9 Schizoaffective disorder, unspecified (principal); I10 Essential (primary) hypertension; J44.9 Chronic obstructive pulmonary disease, unspecified; F03.90 Unspecified dementia, unspecified severity, without behavioral disturbance, psychotic disturbance, mood disturbance, and anxiety; F41.9 Anxiety disorder, unspecified; D64.9 Anemia, unspecified; F31.9 Bipolar disorder, unspecified; G47.00 Insomnia, unspecified; F29 Unspecified psychosis not due to a substance or known physiological condition
CPT/HCPCS: 36415-UA; 71045-TC; 80053-TC; 80061-TC; 81003-TC; 83036-90; 83880-TC; 84443-TC; 84484-TC; 85025-TC; 86592-TC; 93005; G0410; Z7610